=== PATIENT | female | born 1960 | race Caucasian/White ===

== ENCOUNTER 2023-05-27 16:49 | Emergency (ER) | payer BC, OTHER ==
[~2023-05-27] VITALS: Ht 160 cm; Wt 72.7 kg
[~2023-05-27 16:49] MED LIST: LOVA20TA4; PROZAC; SOLI5TAB6
[2023-05-27 18:01] LABS: Hematocrit 22.2 % (36.0-46.0); Hemoglobin 7.5 g/dL (12.2-16.2); Mean Corpuscular Hemoglobin 29.6 pg (28.0-32.0); Mean Corpuscular Hgb Conc. 33.6 g/dL (32.0-36.0); Red Blood Cells 2.52 10^6/uL (4.0-5.20)
[2023-05-27 18:07] LABS: Albumin 1.4 g/dL (3.4-5.0); Calcium 7.9 mg/dL (8.5-10.1); Potassium 4.1 mmol/L (3.5-5.1)
[2023-05-27 18:09] LABS: White Blood Cell 0.1 10^3/uL (4.4-10.8)
[2023-05-27 18:11] LABS: BUN/Creatinine Ratio 26.3 (10.0-20.0); Band Neutrophils % (manual) 0; Basophils % (manual) 0 (0.0-2.0); Bilirubin, Total 1.5 mg/dL (0.2-1.0); Blast Cells 0; Metamyelocytes % 0; Myelocytes % 0; Promyelocytes % 0; Reactive Lymphocytes 0; Total Protein 4.8 g/dL (6.4-8.2)
[2023-05-27 20:12] LABS: Eosinophils % (manual) 1 (0-7); Lymphocytes % (manual) 20 (10.0-50.0); Monocytes % (manual) 40 (0-12); Platelet Estimate Decreased
[2023-05-27 23:21] VITALS: PULSE 105; RESP 20; O2SAT 94
[2023-05-27] MEDS ORDERED: HYDROmorphone HCL 2 MG/ML VL/or syr IM ONE (23:45)
[2023-05-28] MEDS ORDERED: ONDANSETRON HCL 4 MG/2 ML VIAL IV ONE
[2023-05-28] MEDS ORDERED: SODIUM CHLORIDE 0.9% 1,000 ML IV ONE (00:30)
[2023-05-28 01:27] VITALS: BP 94/54; PULSE 106; RESP 20; TEMP 98; O2SAT 100
== END 2023-05-27 22:58 | disposition short-term general hospital (02) ==
LOC: ER 16:49 → EDBD 16:49 → ER 22:58
DX: S80.01XA Contusion of right knee, initial encounter (principal); D72.819 Decreased white blood cell count, unspecified; F32.9 Major depressive disorder, single episode, unspecified; I10 Essential (primary) hypertension; F17.210 Nicotine dependence, cigarettes, uncomplicated; R51.9 Headache, unspecified; Z85.9 Personal history of malignant neoplasm, unspecified; Z91.040 Latex allergy status; Z79.899 Other long term (current) drug therapy; W18.39XA Other fall on same level, initial encounter; Y93.89 Activity, other specified; Y92.89 Other specified places as the place of occurrence of the external cause; Y99.8 Other external cause status
CPT/HCPCS: 36415; 70450; 73502; 73562; 80053; 85007; 85027; 96361; 96372; 96374; 99285; J1170; J2405; J7030

== ENCOUNTER 2023-09-29 13:01 | Emergency (ER) | payer OTHER ==
[~2023-09-29] VITALS: Ht 160 cm; Wt 66.8 kg
[2023-09-29] VITALS (9 sets, daily range): BP systolic 44–79; BP diastolic 22–60; PULSE 76–146; RESP 20–31; TEMP 96.8–97.2; O2SAT 98–99
[2023-09-29] MEDS ORDERED: ATROPINE SULF 0.5 MG/5ML SYR IV ONE (13:02)
[2023-09-29] MEDS ORDERED: EPINEPHrine HCL 1 MG/10 ML SYRG IV ONE (13:02)
[2023-09-29] MEDS ORDERED: DEXTROSE 5% IV ONE (13:02)
[2023-09-29] MEDS ORDERED: CALCIUM CHLOR(10%) 100MG/ML 10ML SYRINGE IV ONE (13:02)
[2023-09-29] MEDS ORDERED: DEXTROSE (50%) 50ML SYRG IV ONE (13:15)
[2023-09-29] MEDS: NOREPINEPHRINE 8 MG/250ML KIT 250 ML IV SCH ×2 (13:30→19:12)
[2023-09-29] MEDS ORDERED: SODIUM CHLORIDE 0.9% 1,000 ML IV ONE ×2 (13:30→14:30)
[2023-09-29 13:49] LABS: Basophils # (auto) 0 10 ^3/uL (0-0.2); Eosinophils # (auto) 0 10 ^3/uL (0-0.8); Lymphocytes # (auto) 0.7 10 ^3/uL (0.4-5.4); Monocytes # (auto) 0 10 ^3/uL (0-1.3); Neutrophils # (auto) 0 10 ^3/uL (1.6-8.6)
[2023-09-29 13:50] LABS: Eosinophils % (auto) 1.6 % (0.0-7.0); Hematocrit 27.3 % (36.0-46.0); Mean Corpuscular Hemoglobin 31.9 pg (28.0-32.0); Mean Corpuscular Hgb Conc. 29.3 g/dL (32.0-36.0); Mean Corpuscular Volume 108.7 fL (80.0-100.0); Monocytes % (auto) 1.8 % (0.0-12.0); Neutrophils % (auto) 0.7 % (37.0-80.0); Nucleated Red Blood Cells % 1.1 %; Red Blood Cells 2.51 10^6/uL (4.0-5.20); Red Cell Distribution Width 17.4 % (11.8-14.3)
[2023-09-29] MEDS ORDERED: metroNIDAZOLE 500MG/100ML 100 ML IV ONE ×2 (14:00→14:28)
[2023-09-29 14:04] LABS: Alanine Aminotransferase 122 U/L (7-40); Albumin 2.5 g/dL (3.2-4.8); Alkaline Phosphatase 46 U/L (46-116); Aspartate Aminotransferase 278 U/L (13-40); Bilirubin, Total 0.4 mg/dL (0.2-1.0); Blood Urea Nitrogen 26 mg/dL (9-23); Calcium 7.9 mg/dL (8.5-10.1); Chloride 101 mmol/L (98-107); Glucose 135 mg/dL (74-106); Potassium 3.2 mmol/L (3.5-5.1); Sodium 133 mmol/L (136-145); Total Protein 3.6 g/dL (5.7-8.2)
[2023-09-29 14:06] LABS: Lymphocytes % (auto) 95.9 % (10.0-50.0)
[2023-09-29 14:10] LABS: White Blood Cell 0.7 10^3/uL (4.4-10.8)
[2023-09-29 14:11] LABS: Carbon Dioxide < 10 mmol/L (20-30)
[2023-09-29] MEDS ORDERED: MIDAZOLAM DRIP 50 mg/50mL 50 ML IV ONE (14:25)
[2023-09-29] MEDS ORDERED: ALBUMIN 25% 100 ML IV ONE ×2 (14:30→17:45)
[2023-09-29] MEDS ORDERED: SODIUM BICARBONATE 8.4 % INJ 50ML VIAL IV ONE ×3 (14:30→20:19)
[2023-09-29 14:43] LABS: Base Excess -25.6 mmol/L (-2.0-2.0)
[2023-09-29] MEDS ORDERED: MIDAZOLAM DRIP 50 mg/50mL 50 ML IV SCH (14:45)
[2023-09-29] MEDS ORDERED: FILGRASTIM (TBO) 300 MCG/0.5 ML SYRG SC ONE (15:00)
[2023-09-29 15:26] LABS: Lactic Acid w/Reflex 12.6 mmol/L (0.4-2.0)
[2023-09-29] MEDS ORDERED: PANTOPRAZOLE 40 MG/10 ML VIAL INJ IV ONE ×2 (16:30→20:00)
[2023-09-29] MEDS ORDERED: TRANEXAMIC ACID 1,000 MG in SODIUM CHL 0.9% 100 ML IV ONE (16:45)
[2023-09-29] MEDS ORDERED: VASOPRESSIN 20 UNITS in SODIUM CHL 0.9% 99 ML IV SCH (17:00)
[2023-09-29] MEDS ORDERED: OCTREOTIDE ACETATE 100 MCG in SODIUM CHL 0.9% 50 ML IV ONE (17:00)
[2023-09-29 17:45] LABS: INR 2.41 (0.9-1.15); Prothrombin Time 23.9 sec (9.3-11.8)
[2023-09-29] MEDS ORDERED: SODIUM CHLORIDE 0.9% 2,000 ML IV ONE (17:45)
[2023-09-29] MEDS ORDERED: CALCIUM CHL 100MG/ML 500 MG in D5W 5% 100 ML IV ONE (17:45)
[2023-09-29] MEDS ORDERED: HYDROCORTISONE SOD SUCC 100 MG/2ML INJ VIAL IV ONE (17:45)
[2023-09-29] MEDS ORDERED: PHENYLEPHRINE IV 250 ML IV ONE (18:17)
[2023-09-29 18:18] LABS: Partial Thromboplastin Time 106.2 SEC (24.5-34.5)
[2023-09-29 18:41] LABS: Platelet Estimate Markedly Decreased
[2023-09-29 18:43] LABS: Macrocytosis Moderate
[2023-09-29] MEDS ORDERED: PHENYLEPHRINE IV 250 ML IV SCH (18:45)
[2023-09-29 18:50] LABS: Base Excess -24.5 mmol/L (-2.0-2.0)
[2023-09-29] MEDS ORDERED: PIPERACILLIN-TAZOB 3.375GM 100 ML IV ONE (19:00)
[2023-09-29] MEDS ORDERED: SODIUM BICARBONATE 8.4% INJ 50ML SYRINGE ONE (20:42)
[2023-09-29] MEDS ORDERED: EPINEPHrine HCL 1 MG/10 ML SYRG ONE ×4 (20:42→21:02)
== END 2023-09-30 21:28 ==
LOC: ER 13:01 → EDBD 13:01 → ER 09-30 02:20
DX: I46.9 Cardiac arrest, cause unspecified (principal); C85.80 Other specified types of non-Hodgkin lymphoma, unspecified site; A08.8 Other specified intestinal infections; A41.9 Sepsis, unspecified organism; D69.6 Thrombocytopenia, unspecified; R79.89 Other specified abnormal findings of blood chemistry; D70.9 Neutropenia, unspecified; D64.9 Anemia, unspecified; I10 Essential (primary) hypertension; F32.9 Major depressive disorder, single episode, unspecified; F17.210 Nicotine dependence, cigarettes, uncomplicated; Z91.040 Latex allergy status; Z79.899 Other long term (current) drug therapy
CPT/HCPCS: 31500; 36415; 36430; 36600; 71045; 80053; 82140; 82805; 83605; 83735; 83880; 84484; 85025; 85610; 85730; 86850; 86900; 86901; 86920; 87040; 87070; 87077; 87186; 87205; 92950; 93005; 96361; 96365; 96366; 96367; 96368; 96372; 96375; 99291; 99292; C9113; J0171; J0461; J1447; J1720; J2250; J2370; J3490; J7030; J7060; P9016; P9035; P9047; 94002